=== PATIENT | female | born 1985 | race Caucasian/White ===

== ENCOUNTER 2017-06-17 05:25 | Inpatient (IN) | payer OTHER ==
[2017-06-11 13:14] VITALS: BMI 28.3
--- NOTE | 2017-06-17 06:37 | HP ---
History & Physical Update - History History: No Change - Physical Physical: No Change - Assessment Assessment: No Change - Plan Plan: No Change (fibroids - for abdominal myomectomy)
[2017-06-17] MEDS ORDERED: ceFAZolin SODIUM 1 GM VIAL IVPB ONE ×2 (06:45→08:20)
[2017-06-17] MEDS ORDERED: ROPIVACAINE HCL 0.5% 30ML VIAL ONE ×2 (07:38)
[2017-06-17] MEDS ORDERED: DEXAMETHASONE SOD PHOSPHATE/PF 10 MG/ML SDV ONE (07:38)
[2017-06-17] MEDS ORDERED: ePHEDrine SULFATE 50 MG/1 ML AMPULE ONE (07:39)
[2017-06-17] MEDS ORDERED: fentaNYL CITRATE 250 MCG/5 ML VIAL ONE (07:40)
[2017-06-17] MEDS ORDERED: SUCCINYLCHOLINE CHLORIDE 200 MG/10 ML VIAL ONE (07:40)
[2017-06-17] MEDS ORDERED: PROPOFOL 20 ML ONE ×5 (07:40)
[2017-06-17] MEDS ORDERED: MIDAZOLAM HCL 2 MG/2 ML SINGLE DOSE VIAL ONE ×3 (07:40→07:41)
[2017-06-17] MEDS ORDERED: ROCURONIUM BROMIDE 50 MG/5 ML VIAL ONE (07:41)
[2017-06-17] MEDS ORDERED: VASOPRESSIN 20 UNITS/ML VIAL IV ONE (07:45)
[2017-06-17] MEDS ORDERED: DEXAMETHASONE SOD PHOSPHATE 4 MG/1 ML VIAL ONE (07:46)
[2017-06-17] MEDS ORDERED: ceFAZolin SODIUM 1 GM VIAL ONE (07:46)
[2017-06-17] MEDS ORDERED: LIDOCAINE HCL/PF 2% SDV 5ML VIAL ONE (07:46)
[2017-06-17] MEDS ORDERED: KETOROLAC TROMETHAMINE 30 MG/1 ML VIAL ONE (07:46)
[2017-06-17] MEDS ORDERED: oxyCODONE HCL 5 MG TABLET PO PRN (07:47)
[2017-06-17] MEDS ORDERED: CEFAZOLIN 1 GM/D5W 50 ML IVPB ONE (08:00)
[2017-06-17] MEDS ORDERED: ONDANSETRON 4 MG/2 ML VIAL IVPUSH PRN (08:48)
[2017-06-17] MEDS ORDERED: NEOSTIGMINE METHYLSULFATE 0.5 MG/ML - 10 ML MDV ONE (08:58)
[2017-06-17] MEDS ORDERED: LACTATED RINGERS SOLUTION 1,000 ML IV SCH (09:00)
--- NOTE | 2017-06-17 09:24 | OP ---
Operative Note - Note: Operative Date: 06/17/17 Pre-Operative Diagnosis: myoma Operation: laparotomy, left oophorectomy Findings: normal appearing uterus, fallopian tubes and right ovary large solid mass on left ovary - fibroma on frozen pathology Post-Operative Diagnosis: Other (left ovarian fibroma) Surgeon: Bonnie Dominguez Weatherstrip Machine Operator: Alexa Ozuna Anesthesiologist/FRAME CLEANER: Memo Celaya Anesthesia: General Specimens Removed: left ovary Estimated Blood Loss (mls): 50 Operative Report Dictated: Yes
[2017-06-17] MEDS: LACTATED RINGERS SOLUTION 1,000 ML/1,000 ML INFUS.BAG IV SCH ×2 (11:00→22:46)
[2017-06-17] MEDS: HYDROmorphone HCL CARPU-JECT 2 MG/1 ML DISP.SYRIN IVPB PRN ×2 (12:57→19:52)
--- NOTE | 2017-06-17 15:11 | OP ---
DATE OF OPERATION: 06/17/2017 PREOPERATIVE DIAGNOSIS: Suspected uterine myoma or leiomyoma. POSTOPERATIVE DIAGNOSIS: Left ovarian fibroma. PROCEDURE: Laparotomy, left oophorectomy. SURGEON: Bonnie Dominguez DO MAINSPRING STRIP GAUGER: Alexa Ozuna MD ESTIMATED BLOOD LOSS: 50 mL SPECIMENS REMOVED: Included left ovary sent to Pathology for permanent and frozen evaluation. COMPLICATIONS: None. COUNTS: Sponge, needle, and instrument count correct. DISPOSITION: Stable to PACU. BRIEF HISTORY AND PROCEDURE: Patient is a 32-year-old female who had been seen in the office complaining of a palpable pelvic mass, had been followed at an outside institution with serial ultrasounds for what appeared to be a growing leiomyoma. The patient presented with desire for definitive management and surgical removal. Patient was counseled on her options for fibroid treatment, and she elected to undergo a laparotomy and abdominal myomectomy. The consents were signed in the office. The patient was then admitted to [facility] on June 17, 2017. Consents were reconfirmed. The patient was then taken back to the operating room where she was given general anesthesia, prepped and draped in the dorsal supine position. A Delgado catheter was placed under sterile conditions. A hard timeout was performed. She was prepped and draped in the usual sterile fashion. A Pfannenstiel skin incision was created with a scalpel and carried to the underlying layer of rectus fascia with the scalpel as well as with Bovie. The fascia was incised on either side of the midline with the Bovie, and the fascial incision was carried in the superolateral direction with the Bovie. The fascia was tented upward and dissected off the underlying layer of rectus muscle sharply. The peritoneum was identified, elevated, and entered bluntly and carefully dissected to allow for adequate room for the surgery. The uterus appeared to be normal at this time, and a large, what appeared to be exophytic leiomyoma was noted which was elevated out of the abdomen and noted to be encompassing the entire left ovary. The left fallopian tube, right fallopian tube, and right ovary as well as the uterus appeared to be normal at this time. The left fallopian tube was carefully dissected off the left ovary at this time, and the ovary was excised with the LigaSure device and sent to Pathology for frozen evaluation. Any area of defect on the left fallopian tube was reapproximated in a running fashion using 2-0 Vicryl suture. Excellent hemostasis was achieved. The right tube and ovary again were examined and noted to be normal. The uterus appeared normal. No other intraabdominal masses or pathology was appreciated. The frozen pathology was noted to be an ovarian fibroma. The peritoneum was then reapproximated using 0 Vicryl in a running fashion. The musculature was reapproximated using interrupted sutures using Vicryl. The fascia was reapproximated using 0 Vicryl in a running fashion. Subcutaneous tissue was irrigated, then reapproximated in 2 layers using 0 Vicryl, and the skin was reapproximated using 3-0 Vicryl in a running fashion. Steri-Strips were applied. The patient tolerated the procedure well. Sponge, needle, and instrument count was reported to be correct, and she was awoken in stable condition and taken to PACU where she is recovering in stable condition at this time. BONNIE DOMINGUEZ DO /[id number]
[2017-06-17] MEDS: IBUPROFEN 800 MG/8 ML IJ IVPB PRN (16:15)
[2017-06-18] MEDS: HYDROmorphone HCL CARPU-JECT 2 MG/1 ML DISP.SYRIN IVPB PRN ×2 (00:18→05:07)
--- NOTE | 2017-06-18 06:26 | PN ---
Progress Note (SOAP) - Subjective Chief Complaint: Pt doing well - Current Medications Current Medications: Active Medications Enoxaparin Sodium (Lovenox -) 40 mg SQ DAILY LYLY Hydromorphone HCl (Dilaudid Injection -) 1 mg IVPB Q4H PRN PRN Reason: PAIN Last Admin: 06/18/17 05:07 Dose: 1 mg Lactated Ringer's (Lactated Ringers Solution) 1,000 ml in 1,000 mls @ 125 mls/ hr IV ASDIR LYLY Last Admin: 06/17/17 22:46 Dose: 125 mls/hr Ibuprofen (Caldolor Injection -) 800 mg IVPB Q8H PRN PRN Reason: PAIN OR FEVER Last Admin: 06/17/17 16:15 Dose: 800 mg Ibuprofen (Motrin -) 600 mg PO Q4H PRN PRN Reason: PAIN Ondansetron HCl (Zofran Injection) 4 mg IVPUSH Q6H PRN PRN Reason: NAUSEA AND/OR VOMITING Oxycodone HCl (Roxicodone -) 5 mg PO Q4H PRN PRN Reason: PAIN Oxycodone HCl (Roxicodone -) 10 mg PO Q4H PRN PRN Reason: PAIN - Objective Vital Signs: Vital Signs Temperature 98.7 F 06/18/17 02:00 Pulse Rate 61 06/18/17 02:00 Respiratory Rate 18 06/18/17 02:00 Blood Pressure 100/45 06/18/17 02:00 O2 Sat by Pulse Oximetry (%) 98 06/17/17 12:31 Constitutional: Yes: Well Nourished, No Distress Gastrointestinal: Yes: WNL, Soft Musculoskeletal: Yes: WNL Extremities: Yes: WNL Edema: No Wound/Incision: Yes: Clean/Dry, Well Approximated Neurological: Yes: WNL, Alert, Oriented Problem List - Problems (1) Status post oophorectomy Code(s): [id number] - Assessment/Plan POD1 sp left oophorectomy Plan oob percocet DC home in am
[2017-06-18] MEDS: IBUPROFEN 800 MG/8 ML IJ IVPB PRN (08:15)
[2017-06-18 08:41] LABS: BASO % 0.2 % (0-2.0); EOS % 0.6 % (0-4.5); HEMATOCRIT 30.9 % (32.4-45.2); HEMOGLOBIN 9.8 GM/dL (10.7-15.3); LYMPH % 20.6 % (8-40); MCH 26.5 pg (25.7-33.7); MCHC 31.7 g/dl (32.0-36.0); MEAN CELL VOLUME 83.6 fl (80-96); MONO % 2.7 % (3.8-10.2); NEUT % 75.9 % (42.8-82.8); PLATELET COUNT 174 K/MM3 (134-434); RDW 14.2 % (11.6-15.6)
[2017-06-18] MEDS: LACTATED RINGERS SOLUTION 1,000 ML/1,000 ML INFUS.BAG IV SCH (09:53)
[2017-06-18] MEDS: ENOXAPARIN NA (PORCINE) 40 MG/0.4 ML DISP.SYRIN SQ SCH (09:55)
--- NOTE | 2017-06-18 17:27 | PATH ---
Surgical Pathology Report Patient Name: ESTELA SALTER [facility]. Rec. 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 Specimen(s) Received OVARIAN MASS LEFT Clinical History Leiomyoma of uterus Intraoperative Consult Diagnosis Left ovarian mass: Neoplasm, favor fibroma Odessa Kenney M.D., 06/17/17 Final Diagnosis OVARIAN MASS, LEFT, EXCISION (FS): FIBROMA. NEOPLASM MEASURES 9 X 8 CM. NO OVARIAN PARENCHYMA IS IDENTIFIED. Electronically Signed Imelda Barber M.D. Gross Description Received in formalin labeled "ovarian mass for frozen possible ovary," is a 260 g, 9.0 x 8.0 x 6.5 cm mass. The outer surface is pink-irving and smooth. Sectioning reveals rubbery fibrous parenchyma with whorled architecture. No areas of hemorrhage or necrosis are identified. A tax compliance representative section is submitted for frozen section. Food Service Sales Representatives sections are submitted in 5 cassettes for permanent sections with the frozen section residue in cassette 1. 06/17/201706/17/2017
[2017-06-18] MEDS: IBUPROFEN 600 MG TABLET (FP) PO PRN (18:28)
[2017-06-18] MEDS: oxyCODONE HCL 5 MG TABLET PO PRN (19:36)
[2017-06-19] MEDS: oxyCODONE HCL 5 MG TABLET PO PRN ×2 (01:21→08:56)
--- NOTE | 2017-06-19 08:32 | DS ---
Physical Exam-RECOOPERER Vital Signs: Vital Signs Temperature 98.8 F 06/18/17 22:00 Pulse Rate 71 06/18/17 22:00 Respiratory Rate 18 06/18/17 22:00 Blood Pressure 93/54 06/18/17 22:00 O2 Sat by Pulse Oximetry (%) 98 06/17/17 12:31 Constitutional: Yes: Well Nourished Eyes: Yes: Conjunctiva Clear HENT: Yes: Atraumatic Neck: Yes: Supple Cardiovascular: Yes: Regular Rate and Rhythm Respiratory: Yes: Regular Gastrointestinal: Yes: Normal Bowel Sounds ...Rectal Exam: Yes: WNL Renal/: Yes: WNL Pelvis: Yes: WNL External Genitalia: Yes: Normal Vaginal Exam: Yes: Normal Cervix: Yes: Normal Wound/Incision: Yes: Clean/Dry, Steri Strips (in place) Neurological: Yes: Alert, Oriented ...Motor Strength: WNL Psychiatric: Yes: Alert, Oriented Labs: CBC, BMP 06/18/17 06:00 Discharge Summary Reason For Visit: LEIOMYOMA OF UTERUS Current Active Problems Status post oophorectomy (Acute) Procedures: Principal: Left Oophorectomy Hospital Course: Routine Post op care Condition: Good - Instructions Diet, Activity, Other Instructions: Dr. Alexa Ozuna Lead Ruby On Rails Developer discharge instructions Physical activity Resume your normal everyday activity as tolerated no heavy lifting or exercise until seen by your surgeon. You may walk unlimited yandel of and climb stairs. You may resume driving the car when you feel safe and comfortable behind the wheel. No sexual activity as instructed by Dr. Ozuna. Wound care If you have a bandage, leave it on, and keep dry for 48-72 hours. After that time discard the outer bandage. If they are tapes on the skin under the out of bandage leave them in place. They will peel off in the next 7 to 10 days. Do Not Peel them off. You may shower the day after surgery. If there are tapes present on the skin, you may shower over them. Diet There are no dietary restrictions. Eat healthy, high-fiber foods. Drink 6 to 8 glasses of liquid each day. This will assist in keeping your bowels are regular. Pain management You may take Tylenol or acetaminophen or Ibuprofen (for example, Motrin, Advil etc.) from my pain prescription medication is ordered should be taken as prescribed for moderate to severe pain. Call Dr. Ozuna for any of the following: Severe pain not relieved by medication Fever of 101 or higher Excessive bleeding or drainage on dressing Inability to urinate Call the office at [phone] for an appointment in seven days. Disposition: HOME - Home Medications Comprehensive Discharge Medication List: Ambulatory Orders Ibuprofen [Motrin -] 600 mg PO QID PRN #28 tablet 06/18/17
[2017-06-19] MEDS: IBUPROFEN 600 MG TABLET (FP) PO PRN (08:57)
[2017-06-19] MEDS: ENOXAPARIN NA (PORCINE) 40 MG/0.4 ML DISP.SYRIN SQ SCH (08:59)
[2017-06-19 09:16] VITALS: BP 110/59; PULSE 93; TEMP 98.4
[2017-06-19] MEDS: LACTATED RINGERS SOLUTION 1,000 ML/1,000 ML INFUS.BAG IV SCH (10:51)
== END 2017-06-19 11:25 | disposition home or self-care (01) | DRG 513 ==
LOC: JSAMEDAYSX 05:25 → EDSTATUS 08:00 → J3W 12:21
PROVIDERS: ADMIT Obstetrics & Gynecology; ATTEND Obstetrics & Gynecology
PROC: 0UB10ZZ Excision of Left Ovary, Open Approach (ICD-10-PCS; principal; 2017-06-17 08:00)
DX: D27.1 Benign neoplasm of left ovary (principal)
CPT/HCPCS: 36415; 84703; 85025; 86850; 86900; 86901; 86922; 88307-TC; 88331-TC; 94760